=== PATIENT | male | born 1960 | race Caucasian/White ===

== ENCOUNTER 2018-05-10 07:44 | Day surgery (SDC) | payer MEDICAID ==
[2018-05-09 11:08] VITALS: BMI 33.2
[2018-05-10] MEDS ORDERED: Propofol 10 mg/ml Inj (20 ML) ONE ×2 (09:30)
[2018-05-10] MEDS ORDERED: Lactated Ringer's 1,000 ML IV ONE (09:30)
[2018-05-10] MEDS ORDERED: Simethicone 40 mg/0.6 ml Liquid (30 ml) ONE (09:46)
[2018-05-10 10:05] VITALS: TEMP 98
[2018-05-10 11:02] VITALS: BP 134/67; PULSE 78; RESP 16; O2SAT 97
== END 2018-05-10 11:00 | disposition home or self-care (01) ==
LOC: C.ENDO 07:44
PROVIDERS: ATTEND Internal Medicine Gastroenterology
DX: K64.0 First degree hemorrhoids (principal); R19.4 Change in bowel habit; I10 Essential (primary) hypertension; E78.5 Hyperlipidemia, unspecified; E11.9 Type 2 diabetes mellitus without complications
CPT/HCPCS: 45378; 82948; J2001; J2704; J7120